=== PATIENT | female | born 1990 | race Caucasian/White ===

== ENCOUNTER 2017-03-16 20:18 | Emergency (ER) | payer MEDICAID, OTHER ==
[~2017-03-16] VITALS: Ht 157.5 cm; Wt 69.6 kg
[~2017-03-16 20:18] MED LIST: HYDR1TAB12 PO; IBUP-1222 PO; IBUP-1223 PO; ONDA4SOL2 PO; ONDA4TAB10 PO; OXYC-302 PO; OXYC-307 PO; OXYC1TAB7 PO; PREN1TAB60 PO; ZOLP-413 PO
[2017-03-16] MEDS ORDERED: KETOROLAC 30 MG/1 ML ONE (21:13)
[2017-03-16] MEDS ORDERED: METOCLOPRAMIDE 5 MG/ML, 2ML ONE (21:13)
[2017-03-16] MEDS ORDERED: ONDANSETRON 2MG/ML, 2ML ONE (21:13)
[2017-03-16] MEDS ORDERED: SODIUM CHLORIDE FLUSH 10ML SYR IVF ONE (21:30)
[2017-03-16] MEDS ORDERED: SODIUM CHLORIDE 0.9% 1,000ML IVBOLUS ONE ×3 (21:30→23:30)
[2017-03-16] MEDS ORDERED: KETOROLAC 30 MG/1 ML IVPush ONE (21:30)
[2017-03-16] MEDS ORDERED: METOCLOPRAMIDE 5 MG/ML, 2ML IVPush ONE (21:30)
[2017-03-16] MEDS ORDERED: ONDANSETRON 2MG/ML, 2ML IVPush ONE (21:30)
[2017-03-16 21:42] LABS: BASOPHILS # (AUTO) 0.01 x10^3/uL (0-0.1); BASOPHILS % (AUTO) 0 % (0-1); EOSINOPHILS # (AUTO) 0.06 x10^3/uL (0-0.4); EOSINOPHILS % (AUTO) 1 % (1-7); LYMPHOCYTES # (AUTO) 0.46 x10^3/uL (1-3.4); LYMPHOCYTES % (AUTO) 6 % (22-44); MD NO; MEAN CORPUSCULAR HEMOGLOBIN 30.9 pg (27.0-34.8); MEAN CORPUSCULAR HGB CONC 33.9 g/dL (32.4-35.8); MEAN CORPUSCULAR VOLUME 91.2 fL (80-100); MEAN PLATELET VOLUME 8.2 fL (7.4-10.4); MONOCYTES % (AUTO) 5 % (2-9); NEUTROPHILS # (AUTO) 7.01 x10^3/uL (1.8-6.8); NEUTROPHILS % (AUTO) 88 % (42-75); PLATELET COUNT 263 x10^3/uL (130-400); RED CELL DISTRIBUTION WIDTH 12.9 % (9.6-15.2)
[2017-03-16 21:52] LABS: ALANINE AMINOTRANSFERASE 20 U/L (12-78); ANION GAP 9 mmol/L (5-15); CALCIUM 8.9 mg/dL (8.5-10.1); CHLORIDE 104 mmol/L (98-107); CREATININE 0.83 mg/dL (0.55-1.02)
[2017-03-16 21:57] LABS: ALKALINE PHOSPHATASE 64 U/L (45-117); BILIRUBIN,TOTAL 0.4 mg/dL (0.2-1.0); TOTAL PROTEIN 8.2 g/dL (6.4-8.2)
[2017-03-16 23:17] LABS: MICROSCOPIC NOT IND
[2017-03-16 23:24] LABS: CULTURE INDICATED? NO
[2017-03-16 23:39] VITALS: BP 114/60
== END 2017-03-17 01:12 | disposition home or self-care (01) ==
LOC: ED 23:50
DX: B34.9 Viral infection, unspecified (principal); R11.2 Nausea with vomiting, unspecified; G43.909 Migraine, unspecified, not intractable, without status migrainosus; R00.0 Tachycardia, unspecified
CPT/HCPCS: 36415; 80053; 81003; 83690; 84703; 85025; 96361; 96374; 96375; 99284; J1885; J2405; J2765; J7030

== ENCOUNTER 2018-05-17 10:59 | Emergency (ER) | payer MEDICAID, OTHER ==
[~2018-05-17] VITALS: Ht 157.5 cm; Wt 67.9 kg
[~2018-05-17 10:59] MED LIST changes: -HYDR1TAB12 PO; +HYDR1TAB13 PO
[2018-05-17] MEDS ORDERED: ONDANSETRON ODT 4 MG PO ONE (11:30)
[2018-05-17 12:00] LABS: BASOPHILS # (AUTO) 0.02 x10^3/uL (0-0.1); BASOPHILS % (AUTO) 0 % (0-1); EOSINOPHILS # (AUTO) 0.21 x10^3/uL (0-0.4); EOSINOPHILS % (AUTO) 3 % (1-7); LYMPHOCYTES # (AUTO) 1.15 x10^3/uL (1-3.4); LYMPHOCYTES % (AUTO) 14 % (22-44); MD NO; MEAN CORPUSCULAR HEMOGLOBIN 31.8 pg (27.0-34.8); MEAN CORPUSCULAR HGB CONC 34.4 g/dL (32.4-35.8); MEAN CORPUSCULAR VOLUME 92.5 fL (80-100); MEAN PLATELET VOLUME 7.9 fL (7.4-10.4); MONOCYTES # (AUTO) 0.53 x10^3/uL (0.2-0.8); MONOCYTES % (AUTO) 6 % (2-9); NEUTROPHILS # (AUTO) 6.33 x10^3/uL (1.8-6.8); NEUTROPHILS % (AUTO) 77 % (42-75); PLATELET COUNT 279 x10^3/uL (130-400); RED BLOOD COUNT 4.39 x10^6/uL (3.82-5.3); RED CELL DISTRIBUTION WIDTH 12.9 % (9.6-15.2)
[2018-05-17 12:16] LABS: ALANINE AMINOTRANSFERASE 16 U/L (12-78); ALBUMIN 3.6 g/dL (3.4-5.0); ANION GAP 6 mmol/L (5-15); CALCIUM 8.6 mg/dL (8.5-10.1); CHLORIDE 106 mmol/L (98-107); CREATININE 0.59 mg/dL (0.55-1.02)
[2018-05-17 12:32] LABS: ALKALINE PHOSPHATASE 53 U/L (45-117); BILIRUBIN,TOTAL 0.2 mg/dL (0.2-1.0); TOTAL PROTEIN 7.7 g/dL (6.4-8.2)
[2018-05-17] MEDS ORDERED: ONDANSETRON ODT 4 MG ONE (12:55)
--- NOTE | 2018-05-17 13:08 | NUR ---
AMULATED TO BATHROOM THEN ROOM WITHOUT ASSISTANCE. AWAITING EVAL BY PROVIDER. NAUSEA, DUDLEY AND CRAMPING. NO VAGINAL BLEEDING
[2018-05-17 13:10] LABS: MICROSCOPIC INDICATED
[2018-05-17 13:11] LABS: CULTURE INDICATED? YES
[2018-05-17] MEDS ORDERED: PROMETHAZINE 25 MG/ML, 1ML IM ONE (13:30)
[2018-05-17] MEDS ORDERED: SODIUM CHLORIDE 0.9% 1,000ML IVBOLUS ONE (13:30)
[2018-05-17] MEDS ORDERED: SODIUM CHLORIDE FLUSH 10ML SYR IVF ONE (13:30)
[2018-05-17] MEDS ORDERED: PROMETHAZINE 25 MG/ML, 1ML ONE (14:11)
[2018-05-17 14:20] LABS: BASOPHILS # (AUTO) 0.02 x10^3/uL (0-0.1); BASOPHILS % (AUTO) 0 % (0-1); EOSINOPHILS # (AUTO) 0.21 x10^3/uL (0-0.4); EOSINOPHILS % (AUTO) 3 % (1-7); LYMPHOCYTES # (AUTO) 1.15 x10^3/uL (1-3.4); LYMPHOCYTES % (AUTO) 15 % (22-44); MD NO; MEAN CORPUSCULAR HEMOGLOBIN 31.6 pg (27.0-34.8); MEAN CORPUSCULAR HGB CONC 34.6 g/dL (32.4-35.8); MEAN CORPUSCULAR VOLUME 91.4 fL (80-100); MEAN PLATELET VOLUME 7.7 fL (7.4-10.4); MONOCYTES # (AUTO) 0.51 x10^3/uL (0.2-0.8); MONOCYTES % (AUTO) 7 % (2-9); NEUTROPHILS # (AUTO) 5.84 x10^3/uL (1.8-6.8); NEUTROPHILS % (AUTO) 76 % (42-75); PLATELET COUNT 260 x10^3/uL (130-400); RED BLOOD COUNT 4.14 x10^6/uL (3.82-5.3); RED CELL DISTRIBUTION WIDTH 13.3 % (9.6-15.2)
--- NOTE | 2018-05-17 14:23 | NUR ---
IV FLUIDS INFUSING AND ADDITIONALLY MEDICATED FOR NAUSEA. VS UPDATED. AWAITING ADD ON LABS
[2018-05-17 14:31] LABS: ALANINE AMINOTRANSFERASE 14 U/L (12-78); ALBUMIN 3.3 g/dL (3.4-5.0); ANION GAP 4 mmol/L (5-15); CHLORIDE 109 mmol/L (98-107); CREATININE 0.44 mg/dL (0.55-1.02)
[2018-05-17 14:33] LABS: ALKALINE PHOSPHATASE 44 U/L (45-117); BILIRUBIN,TOTAL 0.3 mg/dL (0.2-1.0); TOTAL PROTEIN 7.1 g/dL (6.4-8.2)
[2018-05-17] MEDS ORDERED: ACETAMINOPHEN 325 MG TABLET PO ONE (15:00)
--- NOTE | 2018-05-17 15:43 | NUR ---
IMPROVEMENT IN NAUSEA WITH FLUID BOLUS INFUSED. PT GIVEN D/C INSTRUCTIONS AND AMBULATED TO D/C WINDOW WITH STEADY GAIT
[2018-05-17 15:44] VITALS: BP 115/65
== END 2018-05-17 15:46 | disposition home or self-care (01) ==
LOC: ED 14:32
DX: O21.0 Mild hyperemesis gravidarum (principal); G43.909 Migraine, unspecified, not intractable, without status migrainosus; Z3A.11 11 weeks gestation of pregnancy
CPT/HCPCS: 36415; 76801; 80053; 81001; 83605; 84702; 85025; 87077; 87086; 96360; 96361; 96372; 99284; J2550; J7030; Q0162; 87186

== ENCOUNTER 2018-05-26 13:06 | Emergency (ER) | payer MEDICAID ==
[~2018-05-26] VITALS: Ht 157.5 cm; Wt 67.8 kg
[2018-05-26 13:11] VITALS: BP 113/74
--- NOTE | 2018-05-26 13:45 | NUR ---
PT TO ROOM FROM [facility], C/O L EAR/THROAT PAIN SINCE 2AM. COUGH/COLD/FLUX3W. PT 19W PREGNANGT.
== END 2018-05-26 14:32 | disposition home or self-care (01) ==
LOC: ED 14:05
DX: O99.511 Diseases of the respiratory system complicating pregnancy, first trimester (principal); O98.511 Other viral diseases complicating pregnancy, first trimester; J02.9 Acute pharyngitis, unspecified; Z3A.13 13 weeks gestation of pregnancy
CPT/HCPCS: 99281

== ENCOUNTER 2018-08-09 22:18 | Inpatient (IN) | payer MEDICAID ==
[~2018-08-09] VITALS: Ht 160 cm; Wt 67.3 kg
[2018-08-09] MEDS ORDERED: ONDANSETRON 4 MG TABLET ONE (22:35)
[2018-08-09] MEDS: ONDANSETRON ODT 4 MG PO PRN (22:41)
[2018-08-09 23:13] LABS: ALANINE AMINOTRANSFERASE 14 U/L (12-78); ANION GAP 10 mmol/L (5-15); CALCIUM 8.3 mg/dL (8.5-10.1); CHLORIDE 106 mmol/L (98-107); CREATININE 0.52 mg/dL (0.55-1.02)
[2018-08-09 23:15] LABS: ALKALINE PHOSPHATASE 63 U/L (45-117); BILIRUBIN,TOTAL 0.3 mg/dL (0.2-1.0); TOTAL PROTEIN 7.1 g/dL (6.4-8.2)
[2018-08-09 23:16] LABS: RAPID INFLUENZA A Negative (Negative); RAPID INFLUENZA B Negative (Negative)
[2018-08-09 23:18] LABS: MICROSCOPIC INDICATED
[2018-08-09 23:39] LABS: BASOPHILS # (AUTO) 0.01 x10^3/uL (0-0.1); BASOPHILS % (AUTO) 0 % (0-1); EOSINOPHILS # (AUTO) 0.01 x10^3/uL (0-0.4); EOSINOPHILS % (AUTO) 0 % (1-7); LYMPHOCYTES # (AUTO) 1.12 x10^3/uL (1-3.4); LYMPHOCYTES % (AUTO) 8 % (22-44); MD NO; MEAN CORPUSCULAR HEMOGLOBIN 32.4 pg (27.0-34.8); MEAN CORPUSCULAR HGB CONC 33.2 g/dL (32.4-35.8); MEAN CORPUSCULAR VOLUME 97.6 fL (80-100); MEAN PLATELET VOLUME 7.5 fL (7.4-10.4); MONOCYTES # (AUTO) 0.85 x10^3/uL (0.2-0.8); MONOCYTES % (AUTO) 6 % (2-9); NEUTROPHILS # (AUTO) 11.33 x10^3/uL (1.8-6.8); NEUTROPHILS % (AUTO) 85 % (42-75); PLATELET COUNT 245 x10^3/uL (130-400); RED BLOOD COUNT 3.66 x10^6/uL (3.82-5.3)
[2018-08-10] MEDS ORDERED: ACETAMINOPHEN 325 MG TABLET ONE ×4 (01:27→21:07)
[2018-08-10] MEDS ORDERED: CEFTRIAXONE PMX 1GM/50ML 50 ML IV SCH (01:30)
[2018-08-10] MEDS: ACETAMINOPHEN 325 MG TABLET PO PRN ×4 (01:39→21:08)
[2018-08-10] MEDS: LACTATED RINGERS 1,000 ML IV SCH ×4 (01:39→23:35)
[2018-08-10 05:21] LABS: MEAN CORPUSCULAR HEMOGLOBIN 31.5 pg (27.0-34.8); MEAN CORPUSCULAR HGB CONC 32.1 g/dL (32.4-35.8); MEAN CORPUSCULAR VOLUME 98.2 fL (80-100); MEAN PLATELET VOLUME 7.2 fL (7.4-10.4); PLATELET COUNT 237 x10^3/uL (130-400); RED BLOOD COUNT 3.49 x10^6/uL (3.82-5.3)
[2018-08-10 05:38] LABS: CHLORIDE 108 mmol/L (98-107)
[2018-08-10 05:50] LABS: ALANINE AMINOTRANSFERASE 10 U/L (12-78); ALBUMIN 2.6 g/dL (3.4-5.0); ALKALINE PHOSPHATASE 57 U/L (45-117); ANION GAP 10 mmol/L (5-15); BILIRUBIN,TOTAL 0.3 mg/dL (0.2-1.0); CALCIUM 8.4 mg/dL (8.5-10.1); TOTAL PROTEIN 6.3 g/dL (6.4-8.2)
[2018-08-10 06:08] LABS: BASOPHILS # (AUTO) 0.04 x10^3/uL (0-0.1); BASOPHILS % (AUTO) 0 % (0-1); EOSINOPHILS # (AUTO) 0.02 x10^3/uL (0-0.4); EOSINOPHILS % (AUTO) 0 % (1-7); LYMPHOCYTES # (AUTO) 1.18 x10^3/uL (1-3.4); LYMPHOCYTES % (AUTO) 9 % (22-44); MD SCAN; MONOCYTES # (AUTO) 1.23 x10^3/uL (0.2-0.8); MONOCYTES % (AUTO) 9 % (2-9); NEUTROPHILS # (AUTO) 11.35 x10^3/uL (1.8-6.8); NEUTROPHILS % (AUTO) 82 % (42-75)
[2018-08-10] MEDS ORDERED: OXYcodone/APAP 5/325MG TABLET PO PRN (08:00)
[2018-08-10] MEDS ORDERED: ONDANSETRON 2MG/ML, 2ML IVPush PRN (08:00)
[2018-08-10] MEDS ORDERED: OXYcodone 5 MG/5 ML ORAL.SOL UDC ONE ×3 (10:39→21:07)
[2018-08-10] MEDS: OXYcodone 5 MG/5 ML ORAL.SOL UDC PO PRN ×3 (10:40→21:08)
[2018-08-10] MEDS ORDERED: ONDANSETRON 4 MG TABLET ONE (13:05)
[2018-08-10] MEDS ORDERED: ONDANSETRON ODT 4 MG ONE (13:07)
[2018-08-10] MEDS: ONDANSETRON ODT 4 MG PO PRN (13:08)
[2018-08-10 15:54] LABS: BASOPHILS # (AUTO) 0.01 x10^3/uL (0-0.1); BASOPHILS % (AUTO) 0 % (0-1); EOSINOPHILS # (AUTO) 0.01 x10^3/uL (0-0.4); EOSINOPHILS % (AUTO) 0 % (1-7); LYMPHOCYTES # (AUTO) 1.13 x10^3/uL (1-3.4); LYMPHOCYTES % (AUTO) 8 % (22-44); MD NO; MEAN CORPUSCULAR HEMOGLOBIN 32.6 pg (27.0-34.8); MEAN CORPUSCULAR HGB CONC 33.4 g/dL (32.4-35.8); MEAN CORPUSCULAR VOLUME 97.5 fL (80-100); MEAN PLATELET VOLUME 7.3 fL (7.4-10.4); MONOCYTES # (AUTO) 1.08 x10^3/uL (0.2-0.8); MONOCYTES % (AUTO) 8 % (2-9); NEUTROPHILS # (AUTO) 12.12 x10^3/uL (1.8-6.8); NEUTROPHILS % (AUTO) 85 % (42-75); PLATELET COUNT 235 x10^3/uL (130-400); RED BLOOD COUNT 3.47 x10^6/uL (3.82-5.3); RED CELL DISTRIBUTION WIDTH 14.2 % (9.6-15.2)
[2018-08-10 16:02] LABS: ALANINE AMINOTRANSFERASE 12 U/L (12-78); ALBUMIN 2.7 g/dL (3.4-5.0); ANION GAP 8 mmol/L (5-15); CHLORIDE 105 mmol/L (98-107)
[2018-08-10 16:05] LABS: ALKALINE PHOSPHATASE 60 U/L (45-117); BILIRUBIN,TOTAL 0.4 mg/dL (0.2-1.0); CREATININE 0.54 mg/dL (0.55-1.02); TOTAL PROTEIN 6.4 g/dL (6.4-8.2)
[2018-08-10] MEDS: CEFAZOLIN PMX 2GM/50ML 50 ML IVPB SCH (17:27)
[2018-08-11] MEDS ORDERED: OXYcodone 5 MG/5 ML ORAL.SOL UDC ONE ×4 (01:16→21:16)
[2018-08-11] MEDS: CEFAZOLIN PMX 2GM/50ML 50 ML IVPB SCH ×3 (01:17→17:05)
[2018-08-11] MEDS: OXYcodone 5 MG/5 ML ORAL.SOL UDC PO PRN ×5 (01:18→21:19)
[2018-08-11] MEDS ORDERED: ACETAMINOPHEN 325 MG TABLET ONE ×2 (05:25→19:04)
[2018-08-11] MEDS: ACETAMINOPHEN 325 MG TABLET PO PRN ×2 (05:26→19:09)
[2018-08-11 05:54] LABS: BASOPHILS # (AUTO) 0.02 x10^3/uL (0-0.1); BASOPHILS % (AUTO) 0 % (0-1); EOSINOPHILS # (AUTO) 0.02 x10^3/uL (0-0.4); EOSINOPHILS % (AUTO) 0 % (1-7); LYMPHOCYTES # (AUTO) 0.81 x10^3/uL (1-3.4); LYMPHOCYTES % (AUTO) 7 % (22-44); MD NO; MEAN CORPUSCULAR HGB CONC 33.6 g/dL (32.4-35.8); MEAN CORPUSCULAR VOLUME 98.2 fL (80-100); MEAN PLATELET VOLUME 7.4 fL (7.4-10.4); MONOCYTES # (AUTO) 0.52 x10^3/uL (0.2-0.8); MONOCYTES % (AUTO) 5 % (2-9); NEUTROPHILS # (AUTO) 9.48 x10^3/uL (1.8-6.8); NEUTROPHILS % (AUTO) 87 % (42-75); PLATELET COUNT 228 x10^3/uL (130-400); RED BLOOD COUNT 3.36 x10^6/uL (3.82-5.3); RED CELL DISTRIBUTION WIDTH 14.5 % (9.6-15.2)
[2018-08-11 06:13] LABS: ALANINE AMINOTRANSFERASE 10 U/L (12-78); ALBUMIN 2.4 g/dL (3.4-5.0); ANION GAP 7 mmol/L (5-15); CALCIUM 7.8 mg/dL (8.5-10.1); CHLORIDE 107 mmol/L (98-107)
[2018-08-11 06:15] LABS: ALKALINE PHOSPHATASE 57 U/L (45-117); BILIRUBIN,TOTAL 0.7 mg/dL (0.2-1.0); TOTAL PROTEIN 5.9 g/dL (6.4-8.2)
[2018-08-11] MEDS ORDERED: POTASSIUM CHLORIDE 20 MEQ TAB.ER.PRT PO ONE (07:00)
[2018-08-11 07:24] VITALS: BP 87/46
[2018-08-11] MEDS: LACTATED RINGERS 1,000 ML IV SCH ×2 (12:08→19:09)
[2018-08-12] MEDS: CEFTRIAXONE PMX 1GM/50ML 50 ML IV SCH (00:58)
[2018-08-12] MEDS: LACTATED RINGERS 1,000 ML IV SCH ×3 (04:52→21:59)
[2018-08-12] MEDS: OXYcodone 5 MG/5 ML ORAL.SOL UDC PO PRN ×3 (04:52→19:05)
[2018-08-12] MEDS ORDERED: CEFTRIAXONE PMX 1GM/50ML 50 ML IV SCH (09:00)
[2018-08-12] MEDS ORDERED: ONDANSETRON 2MG/ML, 2ML ONE (09:16)
[2018-08-12] MEDS ORDERED: OXYcodone 5 MG/5 ML ORAL.SOL UDC ONE ×2 (10:49→19:00)
[2018-08-12] MEDS ORDERED: BISACODYL 10 MG SUPP PR PRN (13:00)
[2018-08-12] MEDS ORDERED: DOCUSATE 100 MG CAPSULE PO PRN (13:30)
[2018-08-13] MEDS: CEFTRIAXONE PMX 1GM/50ML 50 ML IV SCH (00:52)
[2018-08-13 05:38] LABS: BASOPHILS # (AUTO) 0.02 x10^3/uL (0-0.1); BASOPHILS % (AUTO) 0 % (0-1); EOSINOPHILS # (AUTO) 0.05 x10^3/uL (0-0.4); EOSINOPHILS % (AUTO) 1 % (1-7); LYMPHOCYTES # (AUTO) 1.05 x10^3/uL (1-3.4); LYMPHOCYTES % (AUTO) 19 % (22-44); MD NO; MEAN CORPUSCULAR HEMOGLOBIN 32.9 pg (27.0-34.8); MEAN CORPUSCULAR HGB CONC 33.9 g/dL (32.4-35.8); MEAN PLATELET VOLUME 7.1 fL (7.4-10.4); MONOCYTES # (AUTO) 0.47 x10^3/uL (0.2-0.8); MONOCYTES % (AUTO) 8 % (2-9); NEUTROPHILS # (AUTO) 3.96 x10^3/uL (1.8-6.8); NEUTROPHILS % (AUTO) 71 % (42-75); PLATELET COUNT 253 x10^3/uL (130-400); RED BLOOD COUNT 3.02 x10^6/uL (3.82-5.3); RED CELL DISTRIBUTION WIDTH 14.2 % (9.6-15.2)
[2018-08-13] MEDS: LACTATED RINGERS 1,000 ML IV SCH (06:43)
[2018-08-13] MEDS ORDERED: OXYcodone 5 MG/5 ML ORAL.SOL UDC ONE (07:44)
[2018-08-13] MEDS: OXYcodone 5 MG/5 ML ORAL.SOL UDC PO PRN (07:46)
[2018-08-13] MEDS ORDERED: DOCUSATE 100 MG CAPSULE ONE (07:50)
[2018-08-13] MEDS ORDERED: PRENATAL VIT/IRON/FA 1 EACH TABLET ONE (07:50)
[2018-08-13 08:00] VITALS: BP 94/63
[2018-08-13] MEDS ORDERED: PRENATAL VIT/IRON/FA 1 EACH TABLET PO SCH (09:00)
[2018-08-13] MEDS ORDERED: MAGNESIUM HYDROXIDE 8%, 30ML UDC PO ONE (15:30)
[2018-08-13] MEDS ORDERED: DOCU-131 PO (19:22)
[2018-08-13] MEDS ORDERED: PREN1TAB60 PO (19:22)
[2018-08-13] MEDS ORDERED: AMOX-291 PO (19:23)
== END 2018-08-13 20:00 | disposition home or self-care (01) | DRG 831 ==
LOC: LDOP 22:18 → LDIP 08-10 01:17
PROVIDERS: ADMIT Obstetrics & Gynecology; ATTEND Obstetrics & Gynecology
DX: O98.812 Other maternal infectious and parasitic diseases complicating pregnancy, second trimester (principal); A41.9 Sepsis, unspecified organism; O23.02 Infections of kidney in pregnancy, second trimester; K59.00 Constipation, unspecified; O26.892 Other specified pregnancy related conditions, second trimester; E87.6 Hypokalemia; O99.012 Anemia complicating pregnancy, second trimester; D64.9 Anemia, unspecified; Z3A.23 23 weeks gestation of pregnancy
CPT/HCPCS: 36415; 76770; 76817; 80053; 81001; 83605; 85025; 87040; 87077; 87086; 87186; 87400; G0378; J0690; J0696; J2405; Q0162; J7120

== ENCOUNTER 2018-10-27 13:49 | Outpatient (CLI) | payer MEDICAID ==
[~2018-10-27] VITALS: Ht 157.5 cm; Wt 70.9 kg
[2018-10-27 14:11] VITALS: BP 114/65
== END 2018-10-27 16:00 | disposition home or self-care (01) ==
LOC: LDOP 13:49
PROVIDERS: ATTEND Obstetrics & Gynecology
DX: Z34.93 Encounter for supervision of normal pregnancy, unspecified, third trimester (principal); Z3A.35 35 weeks gestation of pregnancy
CPT/HCPCS: 59025; 81001; 84112; 87086; 99211; G0463

== ENCOUNTER 2018-10-31 09:19 | Outpatient (CLI) | payer MEDICAID ==
[~2018-10-31] VITALS: Ht 165.1 cm; Wt 71.8 kg
[2018-10-31 09:44] VITALS: BP 121/73
== END 2018-10-31 12:56 | disposition home or self-care (01) ==
LOC: LDOP 09:19
PROVIDERS: ATTEND Obstetrics & Gynecology
DX: O26.893 Other specified pregnancy related conditions, third trimester (principal); Z3A.36 36 weeks gestation of pregnancy; M79.604 Pain in right leg
CPT/HCPCS: 36415; 59025; 80053; 85025; 99211; G0463

== ENCOUNTER 2018-11-21 21:11 | Outpatient (CLI) | payer MEDICAID ==
[~2018-11-21] VITALS: Ht 157.5 cm; Wt 70.0 kg
[~2018-11-21 21:11] MED LIST changes: +AMOX-291 PO; +DOCU-131 PO; +NITR100C56 PO
[2018-11-21 21:30] VITALS: BP 100/55
[2018-11-28] MEDS ORDERED: IBUP-1222 PO (10:55)
[2018-11-28] MEDS ORDERED: HYDR-3240 PO (10:57)
== END 2018-11-21 22:30 | disposition home or self-care (01) ==
LOC: LDOP 21:11
PROVIDERS: ATTEND Obstetrics & Gynecology
DX: O46.93 Antepartum hemorrhage, unspecified, third trimester (principal); O26.893 Other specified pregnancy related conditions, third trimester; R10.9 Unspecified abdominal pain; Z3A.38 38 weeks gestation of pregnancy
CPT/HCPCS: 59025; 99211; G0463